=== PATIENT | female | born 1940 | race Caucasian/White ===

== ENCOUNTER → 2016-12-24 07:39 | Outpatient (CLI) | payer MEDICARE ==
[2015-08-31 00:28] VITALS: BMI 28.6
[~2016-12-24 07:39] MED LIST: ACIDOPHILUS LAC1 CAP PO; ATIVAN1 MG PO; BAYER CHEWABLE81 MG PO; COZAAR25 MG PO; COZAAR50 MG PO; DURAGESIC1 PATCH .1 TRANSDERM; INTEGRA PLUS C1 EACH PO; LASIX40 MG PO; LEXAPRO20 MG PO; LIPITOR20 MG PO; MIRALAX17 GM PO; NORCO 7.5/325 T1 TA1 PO; OYSCO 500+D TAB1 TAB PO; PEPCID20 MG PO; PLAVIX75 MG PO; TENORMIN25 MG PO; ZOFRAN4 MG PO
== END | disposition home or self-care (01) ==
LOC: D.NM 07:39
DX: D3A.090 Benign carcinoid tumor of the bronchus and lung (principal)

== ENCOUNTER → 2017-06-15 07:33 | Outpatient (CLI) | payer MEDICARE ==
[2015-08-31 00:28] VITALS: BMI 28.6
== END | disposition home or self-care (01) ==
LOC: D.NM 07:33
DX: C7A.098 Malignant carcinoid tumors of other sites (principal)

== ENCOUNTER → 2018-01-04 07:34 | Outpatient (CLI) | payer MEDICARE ==
[2015-08-31 00:28] VITALS: BMI 28.6
== END | disposition home or self-care (01) ==
LOC: D.NM 07:34
DX: C7A.098 Malignant carcinoid tumors of other sites (principal)

== ENCOUNTER → 2019-02-21 07:50 | Outpatient (CLI) | payer MEDICARE ==
[2015-08-31 00:28] VITALS: BMI 28.6
== END | disposition home or self-care (01) ==
LOC: D.NM 07:50
PROVIDERS: ATTEND Legal Medicine
DX: C7A.098 Malignant carcinoid tumors of other sites (principal)

== ENCOUNTER 2019-08-04 06:01 | Day surgery (SDC) | payer MEDICARE ==
[~2019-08-04] VITALS: Ht 165.1 cm; Wt 53.6 kg
[~2019-08-04 06:01] MED LIST changes: -DURAGESIC1 PATCH .1 TRANSDERM; +DURAGESIC1 PATCH .4 TRANSDERM
[2019-08-04 06:20] LABS: BASOPHILS 0.4 % (0-2); EOSINOPHILS 2.9 % (0-7); HEMOGLOBIN 13.3 g/dL (12-16); IMMATURE GRANULOCYTES 0.2 % (0-5); LYMPHOCYTES 31.2 % (15-50); MCH 34.5 pg (26.0-34.0); MCHC 34.1 g/dL (31.0-37.0); MCV 101.3 fL (80.0-100.0); MONOCYTES 10.9 % (2-11); NEUTROPHILS 54.4 % (40-80); RBC 3.85 10x6/uL (4.00-5.40); RDW 12.2 % (11.5-14.5); WBC 4.8 10x3/uL (4.8-10.8)
[2019-08-04 06:22] LABS: PLATELET COUNT 178 10x3/uL (130-400)
[2019-08-04 06:41] LABS: ANION GAP 10.5 mmol/L (8-16); CALCIUM 8.6 mg/dL (8.5-10.1); CARBON DIOXIDE 27.5 mmol/L (21.0-32.0); CREATININE - SERUM 0.8 mg/dL (0.6-1.3)
[2019-08-04] MEDS ORDERED: MYRBETRIQ50 MG PO (07:16)
[2019-08-04] MEDS ORDERED: PROTONIX40 MG PO (07:17)
[2019-08-04 07:56] VITALS: BP 184/83; Ht 165.1 cm; Wt 53.6 kg
--- NOTE | 2019-08-04 10:11 | NUR ---
1002 IV DC'D. CATHETER TIP INTACT. NO BLEEDING AT SITE. BANDAID APPLIED.
--- NOTE | 2019-08-18 13:49 | OP ---
PATIENT NAME: ERLIN BATEMAN MEDICAL RECORD: [id number] :38 LOCATION:D.OPS ADMISSION DATE: SURGEON: MINA URBINA MD DATE OF OPERATION: 08/04/2019 PREOPERATIVE DIAGNOSES: 1. Gastroesophageal reflux disease. 2. Dysphagia. 3. History of laparoscopic Elvi with hiatal hernia repair. 4. Coronary artery disease. 5. Carcinoid of the lung. 6. Paraesophageal hernia. POSTOPERATIVE DIAGNOSES: 1. Gastroesophageal reflux disease. 2. Dysphagia. 3. History of laparoscopic Elvi with hiatal hernia repair. 4. Coronary artery disease. 5. Carcinoid of the lung. 6. Paraesophageal hernia. PROCEDURE: EGD with biopsy. SURGEON: Mina Urbina MD REPORT OF PROCEDURE: An endoscope was advanced through the mouth and esophagus. We were able to pass through into the stomach and as we went through the stomach, we found the pylorus. The pylorus was tight, but I was eventually able to pass the scope through and get to the second portion of the duodenum. There was no sign of any masses, lesions, or ulcerations present. We pulled the scope back and we were looking at the antrum of the stomach and could see there was some evidence of gastritis with no ulcerations or masses. A biopsy was taken of the antrum and sent for permanent. Retroflexed view showed the patient did have a Elvi wrap performed, but this appeared to be low on the stomach down on the cardia. The wrap itself just appeared abnormal and there was evidence of a hiatal hernia present. The hiatal hernia was about 2 cm in size. There were no masses, lesions, or ulcerations, but there was some retained food material in the fundus of the stomach. The stomach had good peristalsis throughout the procedure. As we pulled back, we could see the GE junction and the wrap was about 3 cm to 4 cm below the GE junction. There was white chalky type material throughout the esophagus, but no masses or ulcerations were visible. The bottom of the esophagus actually looked clean with no signs of Layton's or ulcerations. We pulled the scope back and did not see any masses or lesions. We then attempted to place an esophageal manometry catheter, but we were never able to traverse the patient's GE junction because of weird angulation of it at this point. We tried multiple manipulations using the endoscope, but we were never able to get the catheter to pass. We eventually just discontinued this portion of the procedure. COMPLICATIONS: None. CONDITION: Stable. ANESTHESIA: TIVA. OPERATIVE REPORT [id number] ERLIN BATEMAN BLOOD LOSS: Minimal. TRANSINT:[id number] Voice Confirmation ID: [id number] DOCUMENT ID: [id number] MINA URBINA MD at 1349 CC: BRITT TSANG MD and MALLIKA LIEBERMAN [id number] DICTATION DATE: 08/04/19913 CT TECHNICIAN: 08/04/[address] [facility] SDC 08/04/19 [facility] [address] [place] [address]
== END 2019-08-04 10:26 | disposition home or self-care (01) ==
LOC: D.OPS 06:01
PROVIDERS: ATTEND Surgery
DX: K21.9 Gastro-esophageal reflux disease without esophagitis (principal); R13.10 Dysphagia, unspecified; I25.10 Atherosclerotic heart disease of native coronary artery without angina pectoris; K44.9 Diaphragmatic hernia without obstruction or gangrene

== ENCOUNTER 2019-08-14 16:57 | Inpatient (IN) | payer MEDICARE ==
[~2019-08-14] VITALS: Ht 165.1 cm; Wt 52.2 kg
[~2019-08-14 16:57] MED LIST changes: +MYRBETRIQ50 MG PO; +PROTONIX40 MG PO
--- NOTE | 2019-08-14 17:20 | NUR ---
RECIEVED TO FLOOR PER WC TO ROOM 1117B.ORIENTED TO ROOM AND SURROUNDINGS.CL IN REACH.
[2019-08-14 17:40] VITALS: BP 127/75; BMI 19.1
[2019-08-14] MEDS ORDERED: LOPRESSOR25 MG PO (18:02)
[2019-08-14] MEDS ORDERED: PROZAC20 MG PO (18:03)
[2019-08-14] MEDS ORDERED: MEGACE400 MG/10 PO (18:03)
--- NOTE | 2019-08-14 18:05 | NUR ---
PT ADMITTED TO REHAB UNIT VIA WHEELCHAIR FROM [facility]. PT ACCOMPANIED BY HOSPITAL STAFF AND FAMILY. PT ALERT AND ORIENTED X4. PT HAS BRUISING AND LUMPT TO LEFT SIDE OF HEAD WITH 1 STAPLE. PT HAS FENTANYL PATCH TO LEFT HIP. PT WEARS GLASSES. PT HAS NO TEETH. PT HAS A STAGE I TO COCCYX APPROX [id number]. PT IS A LEFT ARM RESERVE DUE TO LYMPH NODE REMOVAL FOR BREAST CANCER REMOVAL. PT ADMISSION COMPLETED AND QUESTIONS ANSWERED. WCTM.
[2019-08-14 19:38] VITALS: BP 119/68
--- NOTE | 2019-08-14 19:40 | NUR ---
GREETED PATIENT AND INTRODUCED MYSELF HER NURSE. PATIENT IS LAYING IN BED WATCHING TV. RESPIRATIONS EVEN. NO S/S OF DISTRESS. STATES THAT SHE IS NOT IN PAIN AT THIS TIME. CALL LIGHT IN REACH.
--- NOTE | 2019-08-15 01:05 | NUR ---
PT. RESTING QUIETLY WITH EYES CLOSED. RESPIRATIONS EVEN. NO S/S OF DISTRESS. SR UP X 2. BED IN LOWEST POSITION. CALL LIGHT IN REACH.
--- NOTE | 2019-08-15 05:21 | NUR ---
PT. STATES THAT SHE FEELS LIKE HER BLADDER IS FULL. TOOK TO BATHROOM AND NO URINE WAS PRODUCED. BLADDER SCANNED PATIENT AND NO URINE WAS OBSERVED.
[2019-08-15 07:11] LABS: BASOPHILS 0.3 % (0-2); EOSINOPHILS 1.2 % (0-7); HEMATOCRIT 39.6 % (36.0-48.0); HEMOGLOBIN 13.6 g/dL (12-16); IMMATURE GRANULOCYTES 0.2 % (0-5); LYMPHOCYTES 22.9 % (15-50); MCH 34.9 pg (26.0-34.0); MCHC 34.3 g/dL (31.0-37.0); MCV 101.5 fL (80.0-100.0); MEAN PLATELET VOLUME 10.7 fL (7.4-10.4); MONOCYTES 7.4 % (2-11); RDW 12.3 % (11.5-14.5)
[2019-08-15 07:20] LABS: PLATELET COUNT 216 10x3/uL (130-400)
[2019-08-15 07:45] LABS: CALCIUM 9.2 mg/dL (8.5-10.1); CARBON DIOXIDE 23.4 mmol/L (21.0-32.0); CREATININE - SERUM 1.1 mg/dL (0.6-1.3); POTASSIUM - SERUM 3.4 mmol/L (3.5-5.1)
[2019-08-15 08:03] VITALS: BP 150/89
--- NOTE | 2019-08-15 12:04 | NUR ---
SITTING UP IN WC IN ROOM WAITING ON LUNCH. STATES SHE STILL HAS A TINGE OF A HEAD ACHE. NO DRAINAGE NOTED TO LEFT SIDE OF HEAD. ENCOURAGED TO STAY OFF BUTTOCKS TO PREVENT FURTHER SKIN BREAK DOWN. CALL LIGHT IN REACH
[2019-08-15 14:13] VITALS: Ht 165.1 cm; Wt 52.2 kg
--- NOTE | 2019-08-15 19:44 | NUR ---
PT IS RESTING IN BED WITH EYES OPEN. ALERT AND ORIENTED X 3. DENIES ANY DISCOMFORT AT THIS TIME. NO NEEDS VOICED. TITUS TO SCALP ARE CDI. NO DRAINAGE NOTED. SR'S ARE UP X 3 IN BED. CALL LIGHT AND BEDSIDE TABLE ARE WITHIN EASY REACH. NEURO CHECKS WNL.
[2019-08-15 21:02] VITALS: BP 113/69
--- NOTE | 2019-08-15 22:05 | NUR ---
PT RESTING IN BED WITH EYES OPEN. VOICED COMPLAINT OF A NEVER ENDING HEADACHE. NO MEDICATION AVAILABLE AT THIS TIME.
--- NOTE | 2019-08-15 23:21 | NUR ---
QUIET HOURS. PT LYING IN BED EYES CLOSED RESTING QUIETLY. CL IN REACH
--- NOTE | 2019-08-16 02:15 | NUR ---
PT IS RESTING IN BED WITH EYES OPEN. NO ACUTE DISTRESS NOTED.
--- NOTE | 2019-08-16 03:28 | NUR ---
I have reviewed this patient and I concur with the Shift Assessment completed by the Licensed Practical Nurse today this shift.
[2019-08-16 07:57] VITALS: BP 118/63
--- NOTE | 2019-08-16 11:13 | NUR ---
PATIENT ADMITTED TO REHAB FROM [facility]. SHE LIVES AT HOME WITH HER DAUGHTER AND DME AT HOME IS A ROLLING WALKER. DISCHARGE PLANS ARE FOR HER TO RETURN HOME WITH HER FAMILY. WILL CONTINUE TO FOLLOW WITH PATIENT AND WILL ASSIST WITH HER NEEDS.
--- NOTE | 2019-08-16 15:33 | NUR ---
C/O PAIN IN BACK. ASKING FOR PAIN MEDS.
--- NOTE | 2019-08-16 19:30 | NUR ---
PT LYING IN BED. CL IN REACH. DENIES NEEDS AT THIS TIME. BED IN LOW SIDE RAILS X2. RESP EVEN AND UNLABORED. A/O X4. LUNGS CLEAR. BOWEL ACTIVE X4. WCTM
[2019-08-16 20:56] VITALS: BP 115/65
--- NOTE | 2019-08-17 00:08 | NUR ---
QUIET HOURS. PT LYING IN BED EYES CLOSED RESTING QUIETLY. NO SIGNS OF ACUTE DISTRESS NOTED. CL IN REACH
--- NOTE | 2019-08-17 05:00 | NUR ---
ASSISTED TO AND FROM BATHROOM. CL IN REACH. PT BACK IN BED. WCTM
[2019-08-17 06:33] LABS: BASOPHILS 0.5 % (0-2); EOSINOPHILS 1.5 % (0-7); HEMATOCRIT 34.2 % (36.0-48.0); HEMOGLOBIN 11.5 g/dL (12-16); IMMATURE GRANULOCYTES 0.2 % (0-5); LYMPHOCYTES 30.7 % (15-50); MCH 34.4 pg (26.0-34.0); MCHC 33.6 g/dL (31.0-37.0); MCV 102.4 fL (80.0-100.0); MEAN PLATELET VOLUME 10.3 fL (7.4-10.4); MONOCYTES 8.6 % (2-11); NEUTROPHILS 58.5 % (40-80); PLATELET COUNT 192 10x3/uL (130-400); RBC 3.34 10x6/uL (4.00-5.40); RDW 12.3 % (11.5-14.5); WBC 6.1 10x3/uL (4.8-10.8)
[2019-08-17 06:50] LABS: ANION GAP 9.5 mmol/L (8-16); CALCIUM 8.7 mg/dL (8.5-10.1); CARBON DIOXIDE 26.1 mmol/L (21.0-32.0); POTASSIUM - SERUM 3.6 mmol/L (3.5-5.1)
--- NOTE | 2019-08-17 08:00 | NUR ---
SHIFT ASSMT COMPLETED.BREAKFAST TRAY GIVEN.CL IN REACH.
[2019-08-17 08:08] VITALS: BP 119/69
--- NOTE | 2019-08-17 12:00 | NUR ---
FAMILY IN ROOM.CL IN REACH.
--- NOTE | 2019-08-17 15:41 | NUR ---
Nutrition Follow-up: Diet: Regular, mech soft with thin liquids PO intake: 50-75% x 3 meals (none recorded since 08/15/19); Pt reports good appetite but states that she has been choking on her foods a lot. She is followed by ST. She gets diarrhea from milk based oral nutrition supplements. Siginifcant meds: megace, senna, miralax. Labs reviewed. Stage I to coccyx. Wt: 115# (08/15/19), no new wt. +BM Continue PO diet per NARCOTICS DETECTIVE. Will add Ensure Clear. RD Following
--- NOTE | 2019-08-17 16:33 | NUR ---
CARE TEAM MEETING: PATIENT IS NEW TO UNIT AND WILL BE RA AT NEXT MEETING. WILL CONTINUE TO FOLLOW WITH PATIENT
--- NOTE | 2019-08-17 19:20 | NUR ---
GREETED PATIENT AND INTRODUCED MYSELF HER NURSE. PATIENT IS LAYING IN BED WATCHING TV. RESPIRATIONS EVEN. NO S/S OF DISTRESS. STATES THAT PAIN IS 5/10 ON LEFT SIDE OF HEAD. DENIES ANY FURTHER NEEDS AT THIS TIME. CALL LIGHT IN REACH.
[2019-08-17 20:37] VITALS: BP 105/56
--- NOTE | 2019-08-17 23:45 | NUR ---
PT. RESTING QUIETLY WITH EYES CLOSED. RESPIRATIONS EVEN. NO S/S OF DISTRESS. SR UP X 2. BED IN LOWEST POSITION. CALL LIGHT IN REACH.
--- NOTE | 2019-08-18 06:22 | NUR ---
PT. RESTING QUIETLY WITH EYES CLOSED. RESPIRATIONS EVEN. NO S/S OF DISTRESS. CALL LIGHT IN REACH.
--- NOTE | 2019-08-18 08:07 | NUR ---
PT RESTING IN BED WITH EYES OPEN CALL LIGHT IN REACH NO PROBLEMS WILL MONITER
[2019-08-18 08:28] VITALS: BP 116/75
--- NOTE | 2019-08-18 16:14 | NUR ---
PT RESTING IN BED WITH EYES OPEN CALL LIGHT IN REACH NO PROBLEMS WILL MONITER
[2019-08-18 20:00] VITALS: BP 106/57
--- NOTE | 2019-08-19 00:33 | NUR ---
PT. RESTING QUIETLY WITH EYES CLOSED. RESPIRATIONS EVEN. NO S/S OF DISTRESS. SR UP X 2. BED IN LOWEST POSITION. CALL LIGHT IN REACH.
[2019-08-19 08:00] VITALS: BP 128/74
--- NOTE | 2019-08-19 08:15 | NUR ---
PT RESTING IN BED WITH EYES OPEN CALL LIGHT IN REACH WILL MONITER
--- NOTE | 2019-08-19 18:18 | NUR ---
PT RESTING IN BED WITH EYES OPEN CALL LIGHT IN REACH WILL MONITER
--- NOTE | 2019-08-19 19:25 | NUR ---
GREETED PATIENT AND INTRODUCED MYSELF HER NURSE. ASSISTED PATIENT TO BATHROOM USING WHEELCHAIR. BACK TO BED AND REPOSITIONED FOR COMFORT. CALL LIGHT IN REACH. DENIES ANY FURTHER NEEDS AT THIS TIME.
[2019-08-19 21:05] VITALS: BP 102/68
--- NOTE | 2019-08-20 00:19 | NUR ---
PT. AWAKE AND ASSISTED TO BATHROOM USING WHEELCHAIR. RESPIRATIONS EVEN. NO S/S OF DISTRESS. BACK TO BED AND REPOSITIONED FOR COMFORT. CALL LIGHT IN REACH.
[2019-08-20 03:13] LABS: BASOPHILS 0.4 % (0-2); EOSINOPHILS 1.5 % (0-7); HEMATOCRIT 30.7 % (36.0-48.0); HEMOGLOBIN 10.1 g/dL (12-16); IMMATURE GRANULOCYTES 0.4 % (0-5); LYMPHOCYTES 31.3 % (15-50); MCH 33.9 pg (26.0-34.0); MCHC 32.9 g/dL (31.0-37.0); MEAN PLATELET VOLUME 9.8 fL (7.4-10.4); MONOCYTES 12.3 % (2-11); NEUTROPHILS 54.1 % (40-80); PLATELET COUNT 172 10x3/uL (130-400); RBC 2.98 10x6/uL (4.00-5.40); RDW 12.5 % (11.5-14.5); WBC 5.4 10x3/uL (4.8-10.8)
[2019-08-20 03:26] LABS: ANION GAP 10.4 mmol/L (8-16); CALCIUM 8.2 mg/dL (8.5-10.1); CARBON DIOXIDE 22.6 mmol/L (21.0-32.0); CREATININE - SERUM 0.8 mg/dL (0.6-1.3)
--- NOTE | 2019-08-20 08:05 | NUR ---
ALERT AND ORIENTED. NO C/O PAIN. RESP EVEN AND UNLABORED. CL INREACH.
[2019-08-20 08:46] VITALS: BP 144/75
--- NOTE | 2019-08-20 12:03 | NUR ---
SITTING IN WC EATING LUNCH. NO DISTRESS NOTED. CL IN REACH.
--- NOTE | 2019-08-20 15:43 | NUR ---
NO CHANGE IN ASSESSMENT. RESP EVEN AND UNLABORED. DAUGHTER AT BS.
--- NOTE | 2019-08-20 17:07 | NUR ---
STAPLE X1 DC'D FROM HEAD WO DIFFICULTY.
[2019-08-20 19:35] VITALS: BP 106/59
--- NOTE | 2019-08-20 19:35 | NUR ---
BEDSIDE REPORT COMPLETE. PT SITTING UP IN BED ALERT AND ORIENTED X3. ASSISTED TO RESTROOM AND BACK TO BED WITH SBA. NO SIGNS OF ACUTE DISTRESS NOTED. VS STABLE. SHIFT ASSESSMENT COMPLETE. CL IN REACH. FALL PRECAUTIONS IN PLACE. WILL CONTINUE TO MONITOR
--- NOTE | 2019-08-21 00:08 | NUR ---
QUIET HOURS. PT LYING IN BED EYES CLOSED RESTING QUIETLY. RR EVEN AND UNLABORED. CL IN REACH
--- NOTE | 2019-08-21 04:15 | NUR ---
PT LYING IN BED EYES CLOSED RESTING QUIETLY. RR EVEN AND UNLABORED. CL IN REACH
--- NOTE | 2019-08-21 07:55 | NUR ---
EATING BREAKFAST. NO C/O PAIN. RESP EVEN AND UNLABORED. CL IN REACH.
[2019-08-21 08:03] VITALS: BP 126/74
--- NOTE | 2019-08-21 15:08 | NUR ---
NO CHANGE IN ASSESSMENT. AMBULATED TO BR WITH SBA WITH RW. FAMILY AT BS. CL IN REACH.
[2019-08-21 19:20] VITALS: BP 116/60
--- NOTE | 2019-08-21 19:20 | NUR ---
BEDSIDE REPORT COMPLETE. ASSISTED PT TO RESTROOM AND BACK WITH SBA. PT DENIES ANY NEEDS OR PAIN. ALERT AND ORIENTED X4. NO SIGNS OF DISTRESS NOTED. SHIFT ASSESSMENT COMPLETE. VS STABLE. CL IN REACH. FALL PRECAUTIONS IN PLACE. WILL CONTINUE TO MONITOR
--- NOTE | 2019-08-22 00:57 | NUR ---
ASSISTED PT TO RESTROOM AND BACK TO BED WITH SBA. CL IN REACH
--- NOTE | 2019-08-22 04:48 | NUR ---
PT C/O NAUSEA REQUESTED MEDICATION. ADMININSTERED ZOFRAN PER PT REQUEST. NO OTHER CONCERNS VOICED. DENIES ANY PAIN.
--- NOTE | 2019-08-22 06:00 | NUR ---
ASSISTED PT TO RESTROOM AND BACK TO BED WITH SBA. PT REFUSED SHOWER 2ND ATTEMPT. PT STATES SHE IS TOO COLD.
[2019-08-22 06:31] LABS: BASOPHILS 0.3 % (0-2); EOSINOPHILS 1.9 % (0-7); HEMATOCRIT 32.6 % (36.0-48.0); HEMOGLOBIN 10.9 g/dL (12-16); IMMATURE GRANULOCYTES 0.2 % (0-5); LYMPHOCYTES 30.4 % (15-50); MCH 34.2 pg (26.0-34.0); MCHC 33.4 g/dL (31.0-37.0); MCV 102.2 fL (80.0-100.0); MEAN PLATELET VOLUME 10.4 fL (7.4-10.4); MONOCYTES 8.8 % (2-11); NEUTROPHILS 58.4 % (40-80); PLATELET COUNT 203 10x3/uL (130-400); RBC 3.19 10x6/uL (4.00-5.40); RDW 12.5 % (11.5-14.5); WBC 6.2 10x3/uL (4.8-10.8)
[2019-08-22 06:38] LABS: ANION GAP 13.3 mmol/L (8-16); CALCIUM 8.5 mg/dL (8.5-10.1); CARBON DIOXIDE 21.5 mmol/L (21.0-32.0); CREATININE - SERUM 0.8 mg/dL (0.6-1.3); POTASSIUM - SERUM 3.8 mmol/L (3.5-5.1)
--- NOTE | 2019-08-22 07:57 | NUR ---
IN THERAPY ROOM FOR THERAPY. EATING BREAKFAST IN THERAPY ROOM AT THIS TIME. ALERT AND ORIENTED. FORGETFUL AT TIMES. NO C/O PAIN. RESP EVEN ADN UNLABORED.
[2019-08-22 08:14] VITALS: BP 138/75
--- NOTE | 2019-08-22 11:37 | NUR ---
PARTICIPATING IN THERAPY AT THIS TIME. NO C/O PAIN. FAMILY WAITING TO SEE HER IN ROOM.
--- NOTE | 2019-08-22 14:07 | NUR ---
Nutrition Follow-up: Diet: Regular diet, mech soft with thin liquids + Ensure CL TID PO intake: ~76% average x last 7 meals; patient reports and "okay" appetite. States that she tried the Ensure Clear and that she did not like it. She requested that I remove them from her diet order. Significant meds: senna, miralax, megace. Labs reviewed. Noted "stage one/reddened area to coccyx" per nursing skin assessment. Wt: 115# (08/15/19), no new wt. Last BM 08/22/19. Will discontinue Ensure Clear per pt request. Continue current nutrition diet. PO diet consistency per PRINTED [employer] BOARDS [employer]AS[employer] ETCHER. RD Following.
--- NOTE | 2019-08-22 16:52 | NUR ---
NO CHANGE IN ASSESSMENT. TYLENOL GIVEN FOR HEAD ACHE. CL IN REACH.
--- NOTE | 2019-08-22 18:55 | NUR ---
BEDSIDE REPORT COMPLETE. PT LYING IN BED EYES CLOSED RESTING COMFORTABLY. DENIES ANY NEEDS OR PAIN. NO SIGNS OF ACUTE DISTRESS NOTED. VS STABLE. SHIFT ASSESSMENT COMPLETE. CL IN REACH. FALL PRECAUTIONS IN PLACE. WILL CONTINUE TO MONITOR
[2019-08-22 21:00] VITALS: BP 104/59
--- NOTE | 2019-08-23 01:05 | NUR ---
QUIET HOURS. PT LYING IN BED EYES CLOSED RESTING. NO SIGNS OF ACUTE DISTRESS NOTED. CL IN REACH
--- NOTE | 2019-08-23 03:56 | NUR ---
PT LYING IN BED EYES CLOSED RESTING. RR EVEN AND UNLABORED.
--- NOTE | 2019-08-23 06:57 | NUR ---
ASSISTED PT TO RESTROOM AND BACK TO BED WITH SBA USING WALKER. CL IN REACH
[2019-08-23 08:21] VITALS: BP 139/73
--- NOTE | 2019-08-23 19:25 | NUR ---
PT LYING IN BED. CL IN REACH. DENIES NEEDS AT THIS TIME. BED IN LOW SIDE RAILS X2. RESP EVEN AND UNLABORED. A/O X4. LUNGS CLEAR. BOWEL ACTIVE X4. WILL CONTINUE TO MONITOR.
[2019-08-23 21:05] VITALS: BP 127/71
--- NOTE | 2019-08-24 00:46 | NUR ---
I have reviewed this patient and I concur with the Shift Assessment completed by the Licensed Practical Nurse today this shift.
--- NOTE | 2019-08-24 02:00 | NUR ---
ASSISTED TO AND FROM BATHROOM. PT BACK IN BED. CL IN REACH. DENIES NEEDS. WCTM
[2019-08-24 06:13] LABS: BASOPHILS 0.4 % (0-2); EOSINOPHILS 1.4 % (0-7); HEMATOCRIT 31.2 % (36.0-48.0); HEMOGLOBIN 10.3 g/dL (12-16); IMMATURE GRANULOCYTES 0.4 % (0-5); LYMPHOCYTES 32.3 % (15-50); MCH 33.7 pg (26.0-34.0); MEAN PLATELET VOLUME 9.9 fL (7.4-10.4); MONOCYTES 11.2 % (2-11); NEUTROPHILS 54.3 % (40-80); PLATELET COUNT 192 10x3/uL (130-400); RBC 3.06 10x6/uL (4.00-5.40); RDW 12.8 % (11.5-14.5); WBC 4.8 10x3/uL (4.8-10.8)
[2019-08-24 06:41] LABS: ANION GAP 12.2 mmol/L (8-16); CALCIUM 8.1 mg/dL (8.5-10.1); CARBON DIOXIDE 23.8 mmol/L (21.0-32.0); CREATININE - SERUM 0.8 mg/dL (0.6-1.3)
--- NOTE | 2019-08-24 08:00 | NUR ---
SHIFT ASSMT COMPLETED
[2019-08-24 08:16] VITALS: BP 140/55
--- NOTE | 2019-08-24 09:12 | RHP ---
PATIENT: ERLIN BATEMAN MEDICAL RECORD: [id number] ACCOUNT: [id number] LOCATION:[facility]1117 : 38 ADMISSION DATE: 08/14/19 REHABILITATION HISTORY AND PHYSICAL EXAMINATION POST ADMISSION PHYSICIAN EXAMINATION DATE OF ADMISSION: 08/14/2019. ADMITTING DIAGNOSIS: Subdural hygroma. HISTORY OF PRESENT ILLNESS: The patient is a 78-year-old female patient who presented to the ED at [facility] after having a fall and having loss of consciousness. She is on Plavix, was found to have a subarachnoid hemorrhage and had neurosurgery consultation. She was placed in the ICU. She began receiving speech therapy, occupational therapy, and PT. Her Plavix is currently on hold per neurosurgery until 10:30, got a history of aortic valve replacement, aortic valve sclerosis, arthritis, COPD, depression, gastroesophageal reflux disease, hypertension, hyperlipidemia, lung and breast cancer, neuropathy, peptic ulcer disease, TIA. The patient is currently being monitored for any type of further bleeding and any type of changes in acute mental status or loss of consciousness. She is monitoring her hypertension medications closely. She is on telemetry. She has had some acute confusion, dysphagia, alternating her diet right now per speech therapy recommendations. She has got weakness, deconditioning, debility, impaired mobility, gait disturbance. She is a high fall risk and self-care deficits. These are all barriers to her discharge home at this time. She lives at home with her daughter and was independent with ADLs and mobility with use of rolling walker. She is currently set up for mod assist for ADLs and mod assist for mobility. She and her family plan for her to return home at her prior level of functioning or possibly better upon discharge from the rehabilitation. COMORBIDITIES: In this patient include cellulitis, history of macular degeneration, hyperlipidemia, history of breast cancer, osteopenia, aortic valve sclerosis, aortic valve regurgitation. She has got left ventricular hypertrophy, hyponatremia, anemia, drug-induced leukopenia, expressive aphasia, diarrhea, and nausea. She has got a history of depression, neck pain, hearing problems, abdominal pain. She has got a history of achalasia, blood loss anemia, GI bleeding, pneumonia in the past, mental status alteration, dehydration, coronary artery disease, essential hypertension, atherosclerosis of the coronary arteries, uncontrolled hypertension, cystitis, neuropathy, paraesophageal hernia, osteoarthritis, SIADH, and syncope. PAST MEDICAL HISTORY: Aortic valve regurgitation, arthritis, COPD, depression, gastroesophageal reflux disease, hiatal hernia, hypertension, lung cancer, breast cancer, left ventricular hypertrophy, peptic ulcer disease, TIA in the past. PAST SURGICAL HISTORY: Includes radical mastectomy, back surgery, lumbar laminectomy, discectomy, cholecystectomy, colonoscopy, EGD with dilatation, and PTCA. ALLERGIES: ANY TYPE OF TAPE, MEPERIDINE, ASPIRIN, GABAPENTIN, SULFA, ZOCOR, VYTORIN, TETANUS, AND WELLBUTRIN. CURRENT MEDICATIONS: Include polyethylene glycol 17 grams daily. She is on HISTORY AND PHYSICAL [id number] BATEMAN,ERLIN SKY Floranex daily. She is on a Duragesic patch 25 mcg daily, she uses this along with a 12 mcg patch to get a total dose of 37 mcg. She is on Toprol 25 mg daily, Megace 400 mg daily, losartan 50 mg daily, Niferex 1 cap daily, fluoxetine 20 mg daily, calcium carbonate 500 mg daily, Protonix 40 mg b.i.d., Calmoseptine 1 application b.i.d., Zofran 4 mg q.6 hours p.r.n., Ativan 1 mg b.i.d. p.r.n., atorvastatin 20 mg at bedtime, Nitrostat 0.4 mg q.5 minutes p.r.n. pain, and Tylenol 650 q.4 hours p.r.n. HABITS: No alcohol or tobacco use. FAMILY HISTORY: Noncontributory. SOCIAL HISTORY: The patient hopes to return back home with her daughter and get back to her prior level of functioning. REVIEW OF SYSTEMS: GENERAL: Does complain of some weakness and fatigue. HEENT: Denies cold, cough, or congestion. CARDIOVASCULAR: Denies chest pain. PHYSICAL EXAMINATION: VITAL SIGNS: Stable, afebrile. GENERAL: A well-developed, thin female, in no acute distress, alert upon exam. HEENT: Normocephalic and atraumatic. Mucosa moist. NECK: Supple. No lymphadenopathy. LUNGS: Clear at this time. No wheezes, rhonchi or rales. HEART: Regular rate and rhythm. She does have a holosystolic murmur. ABDOMEN: Soft, benign, and nondistended. Positive bowel sounds times 4. EXTREMITIES: No clubbing, cyanosis or edema. NEUROLOGIC: She does have a problem with some mentation. She does have noted proximal muscle weakness in her legs. LABORATORY DATA: White count of 6.0, H&H of 13 and 39, and platelet count is noted to be 216. Her sodium is 138, potassium 3.4, BUN and creatinine of 14 and 1.1, and blood sugar is noted to be 109. ASSESSMENT: This is a 78-year-old female patient admitted to the rehab with a working diagnosis of status post subarachnoid hemorrhage and subdural hygroma. The patient has potential to make improvement. We instituted the following multidisciplinary therapies including, but not limited to physical, occupational, respiratory, speech, nutritional services, prosthetics and orthotics. Given her complex medical condition and risks for more complications, rehabilitation services cannot be provided at a low level of care such as long term facility. PLAN: 1. Admit to [facility] for an intensive inpatient therapy to include the following disciplines: A. Physical therapy to improve gait, all transfer skills and bed mobility to a modified independent level. B. Occupational therapy to help with activities of daily living. C. Case management to assist with discharge planning and placement options. D. Nutrition to assist with nutritional needs. E. Rehabilitation nursing to assist in monitoring the patient's underlying medical conditions and to assist with any type of bowel or bladder management. HISTORY AND PHYSICAL [id number] ERLIN BATEMAN 2. The patient's current medications and medical care will be continued. 3. The patient will be placed on standard fall precautions. 4. I am going to go ahead and replace her potassium. 5. We will follow up lab work again on Thursday, but we will see again in the a.m. TRANSINT:[id number] Voice Confirmation ID: [id number] DOCUMENT ID: [id number] KORI notes whether there has been none or any medical/functional change since admission: - No change since prescreen. KORI attests patient continues to be appropriate for IRF: - Continues t be appropriate. CASI VELAQSUEZ MD at 0912 CC: [id number] DICTATION DATE: 08/15/19 0852 WATER COMMISSIONER: 08/15/19 1040 ADM IN [place] [id number] [place] [address]
--- NOTE | 2019-08-24 16:00 | NUR ---
WILL CONTINUE TO MONITOR.PLAN DC HOME TOMARROW
--- NOTE | 2019-08-24 19:25 | NUR ---
PT LYING IN BED WATCHING TV. CL IN REACH. DENIES NEEDS AT THIS TIME. A/O X4. LUNGS CLEAR. BOWEL ACTIVE X4. RESP EVEN AND UNLABORED. WILL CONTINUE TO MONITOR.
[2019-08-24 21:20] VITALS: BP 126/63
--- NOTE | 2019-08-25 02:44 | NUR ---
ASSISTED TO AND FROM BATHROOM. BACK IN BED. CL IN REACH. TM
--- NOTE | 2019-08-25 04:23 | NUR ---
QUIET HOURS. PT LYING IN BED SUPINE EYES CLOSED RESTING QUIETLY. RR EVEN AND UNLABORED. CL IN REACH
--- NOTE | 2019-08-25 04:26 | NUR ---
I have reviewed this patient and I concur with the Shift Assessment completed by the Licensed Practical Nurse today this shift.
[2019-08-25 08:00] VITALS: BP 141/76
[2019-08-25] MEDS ORDERED: Cozaar PO (09:03)
[2019-08-25] MEDS ORDERED: PLAVIX75 MG PO (09:03)
[2019-08-25] MEDS ORDERED: ESGIC TABLET1 TAB PO (09:03)
--- NOTE | 2019-08-25 10:01 | NUR ---
PATIENT DISCHARGING HOME TODAY WITH FAMILY. PATIENT DECLINES HOME HEALTH AT THIS TIME. NO NEW DME NEEDED AT THIS TIME. DR. MALLIKA LIEBERMAN 09/16/19 @ 11:00, DR. ALVAREZ 09/13/19 @ 1:45. PATIENT CHOICE FORM( HAND OUT GIVEN ) AND [facility] FORMS SIGNED, COPY GIVEN TO PATIENT AND FILED IN CHART. DISCHARGE INSTRUCTIONS FAXED TO PCP AND REVIEWED WITH PATIENT AND FAMILY.
[2019-08-25] MEDS ORDERED: DURAGESIC1 PATCH .7 TRANSDERM ×2 (11:39→11:41)
== END 2019-08-25 12:00 | disposition home or self-care (01) | DRG 92 ==
LOC: D.REHAB 16:57
PROVIDERS: ADMIT Emergency Medicine; ATTEND Emergency Medicine
DX: G96.0 Cerebrospinal fluid leak (principal); L03.90 Cellulitis, unspecified; E87.1 Hypo-osmolality and hyponatremia; N17.9 Acute kidney failure, unspecified; C78.00 Secondary malignant neoplasm of unspecified lung; S06.6X9D Traumatic subarachnoid hemorrhage with loss of consciousness of unspecified duration, subsequent encounter; W19.XXXD Unspecified fall, subsequent encounter; E78.5 Hyperlipidemia, unspecified; M85.80 Other specified disorders of bone density and structure, unspecified site; H35.30 Unspecified macular degeneration; Z85.3 Personal history of malignant neoplasm of breast; I35.8 Other nonrheumatic aortic valve disorders; D64.9 Anemia, unspecified; D70.2 Other drug-induced agranulocytosis; M54.2 Cervicalgia; R10.9 Unspecified abdominal pain; I25.10 Atherosclerotic heart disease of native coronary artery without angina pectoris; I10 Essential (primary) hypertension; R55 Syncope and collapse; M19.90 Unspecified osteoarthritis, unspecified site; R13.10 Dysphagia, unspecified; K21.9 Gastro-esophageal reflux disease without esophagitis; F41.9 Anxiety disorder, unspecified; R00.2 Palpitations; I35.1 Nonrheumatic aortic (valve) insufficiency; R60.9 Edema, unspecified; R42 Dizziness and giddiness; E87.6 Hypokalemia; M17.12 Unilateral primary osteoarthritis, left knee

== ENCOUNTER 2020-02-19 10:47 | Emergency (ER) | payer MEDICARE ==
[~2020-02-19] VITALS: Ht 165.1 cm; Wt 65.9 kg
[~2020-02-19 10:47] MED LIST changes: +Cozaar PO; +DURAGESIC1 PATCH .7 TRANSDERM; +ESGIC TABLET1 TAB PO; +LOPRESSOR25 MG PO; +MEGACE400 MG/10 PO; +PROZAC20 MG PO
[2020-02-19 11:01] VITALS: Ht 165.1 cm; Wt 65.9 kg
[2020-02-19 11:21] LABS: BASOPHILS 0.2 % (0-2); EOSINOPHILS 0 % (0-7); HEMATOCRIT 41.5 % (36.0-48.0); HEMOGLOBIN 13.7 g/dL (12-16); IMMATURE GRANULOCYTES 0.2 % (0-5); MCH 34.4 pg (26.0-34.0); MCV 104.3 fL (80.0-100.0); MONOCYTES 6.3 % (2-11); NEUTROPHILS 84.3 % (40-80); PLATELET COUNT 206 10x3/uL (130-400); RBC 3.98 10x6/uL (4.00-5.40); RDW 12.5 % (11.5-14.5); WBC 10.1 10x3/uL (4.8-10.8)
[2020-02-19 11:39] LABS: CALC OSMOLALITY 276 mosm/kg (275-300); CARBON DIOXIDE 22.9 mmol/L (21.0-32.0); CHLORIDE - SERUM 102 mmol/L (98-107); CREATININE - SERUM 0.9 mg/dL (0.6-1.3); GLUCOSE 127 mg/dL (74-106); SODIUM 138 mmol/L (136-145); UREA NITROGEN 11 mg/dL (7-18); eGFR NON AFRICAN AMERICAN 64 mL/min (90-120)
[2020-02-19 11:40] LABS: BILIRUBIN NEGATIVE (NEGATIVE); GLUCOSE NEGATIVE (NEGATIVE); KETONE SMALL mg/dL (NEGATIVE); NITRITE NEGATIVE (NEGATIVE); RED CELLS - URINE 25-50 /hpf (0-5); UROBILINOGEN NORMAL (NORMAL); WHITE CELLS - URINE 0-5 /hpf (NEGATIVE)
[2020-02-19 11:41] LABS: BACTERIA MANY /hpf (NEGATIVE)
[2020-02-19 11:56] LABS: ALBUMIN 3.3 g/dL (3.4-5.0); ALKALINE PHOSPHATASE 110 U/L (30-120); BILIRUBIN - TOTAL 0.92 mg/dL (0.2-1.3); CKMB 0.9 U/L (0.0-3.6); CREATINE KINASE 99 UL (21-215); MAGNESIUM - SERUM 1.7 mg/dL (1.8-2.4); PRO BNP 3058 pg/mL (0-450); TROPONIN-I 0.052 ng/mL (0.000-0.060)
[2020-02-19 11:58] LABS: ALT (SGPT) 4 U/L (10-68)
[2020-02-19 12:07] LABS: APTT 29.8 SECONDS (22.8-39.4); INR 1.12 (0.85-1.17); PROTIME 14.3 SECONDS (11.6-15.0)
[2020-02-19 13:54] VITALS: BP 165/99
== END 2020-02-19 13:56 | disposition hospice, inpatient (51) ==
LOC: D.ER 10:47
PROVIDERS: Emergency Medicine
DX: I62.00 Nontraumatic subdural hemorrhage, unspecified (principal); G62.9 Polyneuropathy, unspecified; K21.9 Gastro-esophageal reflux disease without esophagitis; I10 Essential (primary) hypertension; E07.9 Disorder of thyroid, unspecified; Z86.73 Personal history of transient ischemic attack (TIA), and cerebral infarction without residual deficits; Z91.81 History of falling

== ENCOUNTER 2020-02-19 11:40 | Inpatient (IN) | payer OTHER ==
[~2020-02-19] VITALS: Ht 152.4 cm; Wt 72.6 kg
--- NOTE | 2020-02-19 13:50 | MORECARE ---
CASE MANAGEMENT DISCHARGE SUMMARY PATIENT: ERLIN BATEMAN SKY UNIT: [id number] ADM DATE: 02/19/20 AGE: 79 : 39 SEX: F ROOM/BED: D.2218 AUTHOR: OLIVER COELHO PHYSICIAN: REFERRING PHYSICIAN: BRITT TSANG MD DATE OF SERVICE: 02/19/20 Discharge Plan Patient Name: ERLIN BATEMAN Facility: [facility]:[place] : 1940 Planned Disposition: Hospice Medical Facility Anticipated Discharge Date: Discharge Date: Expected LOS: Initial Reviewer: [email or web address] Initial Review Date: 02/19/2020 Generated: 02/19/20 2:50 pm Comments DCP- Discharge Planning Updated by [email or web address]: Jade Lopez on 02/19/20 12:[address] RECEIVED A HOSPICE ORDER, WENT TO GO SPEAK WITH PATIENTS FAMILY AND [facility] WAS ALREADY IN ER SIGNING LEGALS WITH FAMILY AND WILL BE GIP HOSPICE CM TO ASSIST NEEDED Patient Name: ERLIN BATEMAN Page [phone] at 1350 All edits/amendments must be made on the electronic document DICTATION DATE: 02/19/20 1350 SCIENCE CENTER DISPLAY BUILDER: MATT 02/19/20 1350 RPT#: [id number] DC DATE: STATUS: ADM IN [address] [place] [address] END OF REPORT
--- NOTE | 2020-02-19 16:00 | NUR ---
ARIVES TO UNIT PER STRETCHER, FAMILY AT BED SIDE, IV TO RAC AND SL TO R HAND, NONRESPONSIVE, O2 PER NC AT 3L, TRANSFERED TO BED BY 3 ASSIST, POWELL TO GRAVITY, URINE PHYLLIS IN COLOR, DEMINISHED LUNG SOUNDS, RESP RATE RAPID AT 38, HR IRREGULAR, HOB UP 30, CONT TO MONITOR, HOSPICE NURSE PRESENT
[2020-02-19 16:16] VITALS: BP 197/117; Ht 152.4 cm; Wt 72.6 kg
[2020-02-19 20:00] VITALS: BP 138/87
--- NOTE | 2020-02-20 01:35 | NUR ---
0000 - NO BREATH. NO PULSE. OLDEST DAUGHTER, SON-IN-LAW WITH RN AT BEDSIDE. 0005 - NOTIIFIED HOSPICE NURSE. 0047 - HOSPICE NURSE SUHAS MCDONALD ARRIVED AND PRONOUNCED TIME OF . 0100 - TOUR AGENT NOTIFIED. 0105 - HOME NOTIFIED. 0110 - MIRANDA NOTIFIED. 0120 - POST MORTEM CARE DONE. POWELL AND IV'S REMOVED. 0130 - HOME ARRIVED. TRANSPORTED PATIENT OFF FLOOR.
--- NOTE | 2020-02-20 14:22 | MORECARE ---
CASE MANAGEMENT DISCHARGE SUMMARY PATIENT: ERLIN BATEMAN SKY UNIT: [id number] ADM DATE: 02/19/20 AGE: 79 : 39 SEX: F ROOM/BED: D.2218 AUTHOR: OLIVER COELHO PHYSICIAN: REFERRING PHYSICIAN: BRITT TSANG MD DATE OF SERVICE: 02/20/20 Discharge Plan Patient Name: ERLIN BATEMAN Facility: [facility]:[place] : 1940 Planned Disposition: Hospice Medical Facility Anticipated Discharge Date: Discharge Date: 02/20/2020 Expected LOS: 0 Initial Reviewer: [email or web address] Initial Review Date: 02/19/2020 Generated: 02/20/20 3:22 pm DCP- Discharge Planning Updated by [email or web address]: Jade Lopez on 02/19/20 12:[address] RECEIVED A HOSPICE ORDER, WENT TO GO SPEAK WITH PATIENTS FAMILY AND [facility] WAS ALREADY IN ER SIGNING LEGALS WITH FAMILY AND WILL BE GIP HOSPICE CM TO ASSIST NEEDED Last DP export: 02/19/20 12:50 p Patient Name: ERLIN BATEMAN Page [phone] at 1422 All edits/amendments must be made on the electronic document DICTATION DATE: 02/20/201421 BUTTON CUTTING MACHINE OPERATOR: MATT 02/20/20 142 RPT#: [id number] DC DATE:02/20/20 STATUS: DIS IN [facility] [address] [place] [address] END OF REPORT
== END 2020-02-20 01:30 | DRG 951 ==
LOC: D.MS 11:40
PROVIDERS: ADMIT Legal Medicine; ATTEND Legal Medicine
DX: Z51.5 Encounter for palliative care (principal)